=== PATIENT | male | born 1960 ===

== ENCOUNTER 2025-05-03 13:27 | Outpatient (AMB) | payer MEDICARE, MEDICAID, SELFPAY ==
--- NOTE | 2025-05-03 13:35 | A.PHYSOV_ITS ---
Vital Signs 05/03/25 13:36 Height 5 ft 7 in Weight 139 lb BMI 21.8 Intake Visit Reasons: NPV NAIN REF RT LUMBAR RADICULOPATHY Intake Note: Patient is a 64 year old male in office today as new patient for low back pain. Technical Specialist Cytology Required: Yes Technical Specialist Cytology Services: Technical Specialist Cytology Present Technical Specialist Cytology Name: [id number] klever Information Interpreted: clinical only Allergies No Known Allergies Allergy (Verified 05/03/25 13:43) HPI Comments Details: History of Present Illness (patient support representative [id number]) The patient is a 64-year-old male presenting with back pain radiating to the leg. The pain is described as intermittent and varies in intensity, with a current pain level of 6 out of 10. The patient reports that the pain is exacerbated by physical activities related to his work, which involves heavy lifting and pushing. The patient has been managing the pain with oknc-ita-slejshx medications such as Motrin, Advil, ibuprofen, and Tylenol, as well as prednisone 10 mg, which provides some relief. He has also undergone chiropractic treatment and physical therapy, which have been part of his pain management strategy. The patient has pain with specific movements such as bending forward and leaning back increase the pain, with radiation into the leg. The pain is suspected to be due to a pinched nerve in the back, as suggested by the clinician. Patient has CT scan of the lumbar spine reported below. I reviewed the referring provider's no prior consultation Pain Description - Onset and Timing: Pain is intermittent and varies in intensity - Quality and Character: Pain level is currently 6 out of 10 - Primary Location: Pain is located in the back with radiation to the leg - Exacerbating Factors: Physical activities related to work, such as heavy lift ing and pushing - Relieving Factors: [id number]-tbe-mttrbae medications and prednisone provide some relief PFSH Surgical History History of eye surgery (Unknown) Social History Alcohol intake: current Alcohol intake frequency: does not drink Patient Tobacco Use Status: Former Tobacco user Use of substances other than those prescribed or required for medical reasons: No Review of Systems Narrative Review of Systems - Musculoskeletal: Reports pain in the back with radiation to the leg - Neurological: Denies pain upon touch in the back Physical Exam Exam Exam: Physical Exam Lumbar Spine: He is tender to his lower lumbar facets on the right. He is otherwise nontender. Full range of motion is lumbar spine. FACET LOADING. Special Tests: Lhermittes sign was negative Heel Toe walk is normal Left straight leg raise: Negative Right straight leg raise: POSITIVE RIGHT Special tests Teddy test is negative Ganslen's test is negative SI Joint compression test negative Gerald test negative Piriformis stretch is negative Lower Extremities: Full range of motion bilateral lower extremities. No calf pain or edema. Neuro: Sensation: Intact to lower extremities bilaterally Strength L2 (Psoas): 5/5 on the left and 5/5 on the right. L3 (Quads): 5/5 on the left and 5/5 on the right. L4 (Ant tibialis): 5/5 on the left and 5/5 on the right. L5 (EHL) 5/5 on the left and 5/5 on the right. S1 (Gastroc): 5/5 on the left and 5/5 on the right. DTR L4: (Patellar) Left 1 Right 1 S1: (Achilles) Left 0 Right 0 Babinski Downgoing No pathologic clonus. No involuntary movement. Vital Signs: BMI result Body Mass Index 21.8 Assessment & Plan Assessment & Plan (1) Lumbar radiculopathy: Code(s): M54.16 - Radiculopathy, lumbar region Category: Medical (2) Lumbar spondylosis: Code(s): M47.816 - Spondylosis without myelopathy or radiculopathy, lumbar region Category: Medical Plan Pain Management - Affect: Pain impacts daily activities due to work-related physical demands - Analgesia: Current pain level is 6 out of 10; medications include Motrin, Advil, ibuprofen, Tylenol, and prednisone - Activities of Daily Living: Pain affects ability to perform work-related tasks Plan Patient was informed and verbally consented to the use of an ambient scribe for clinic note documentation during this visit. 1. Lumbar radiculopathy The patient is suspected to have a pinched nerve in the back, causing pain radiating to the leg. Conservative treatment options discussed include therapy, pet care attendant, and medications which he has failed. An epidural injection was recommended to potentially reduce pain by 50% for 3 to 6 months, though it is not a cure. The risks of the injection, including infection and nerve damage, were explained, and the procedure will be performed under x-ray guidance. I recommend right L4 TFESI is eager to proceed. The patient will have a follow-up appointment three weeks after the injection. We discussed the benefits of proper nutrition and exercise to maintain a healthy body weight to improve longevity and function. We also discussed the benefits of proper lifting techni ques, core strengthening and proper posture. Thank you for allowing me to participate in the care of your patient. Coding Level of Care Code Tele New Pt Level 4 (25760) Diagnoses Lumbar radiculopathy M54.16 Lumbar spondylosis M47.816
[2025-05-03 13:36] VITALS: BMI 21.8
--- OUTSIDE RECORDS SUMMARY | 2025-05-04 06:26 | XMS_ITS | Clinical Summary ---
Author Organization [facility] Address [address] [place] [address] Phone Care Team Providers Care Rehabilitation Program Coordinator Name Role Phone Eufemia Resendez MD Primary Care Provider [phone] Allergies No known active allergies Medications cetirizine (ZyrTEC) 10 mg tabletIndication s:Allergic rhinitis, unspecified Take 1 tablet (10 mg total) by mouth 1 (one) time each day. 90 tablet 1 5 Active methocarbamoL (ROBAXIN) 500 mg tablet Take 1 tablet (500 mg total) by mouth 2 (two) times a day for 10 days. 20 tablet 5 Active naproxen (NAPROSYN) 500 mg tabletIndication s:Unspecified osteoarthritis, unspecified site Take 1 tablet (500 mg total) by mouth 2 (two) times a day with meals. 60 tablet 11 5 Active fluticasone propionate (FLONASE) 50 mcg/actuation nasal spray ROCIAR 2 VECES IN CADA NARES A DIARIO 16 mL 5 5 Active cyclobenzaprine (FLEXERIL) 10 mg tablet Take 1 tablet (10 mg total) by mouth 3 (three) times a day if needed for muscle spasms for up to 10 days. 15 tablet 5 Active gabapentin (NEURONTIN) 300 mg capsule Take 1 capsule (300 mg total) by mouth 3 (three) times a day. Start with 1 tablet once a day x 3 days, then increase to 1 tablet twice a day x 3 days then increase to 1 tablet 3 times a day 90 capsule 1 5 Active predniSONE (DELTASONE) 10 mg tablet Take 1 tablet (10 mg total) by mouth 1 (one) time each day. Take 4 tablets once a day x 3 days then 3 tablets once a day x 3 days then 2 tablets once a day x 3 days then 1 tablet once a day x 3 days then 1/2 a tablet once day x 3 days then discontinue. 32 tablet 5 Active ganciclovir (ZIRGAN) 0.15 % ophthalmic gel solution Apply 1 drop to right eye 5 (five) times a day. 5 g 5 Active prednisoLONE acetate (PRED FORTE) 1 % ophthalmic suspension PONGA MIRA GOTA EN SHAD DERECHO CUATRO VECES AL D A 5 Active acetaminophen (Tylenol Extra Strength) 500 mg tablet Take 2 tablets (1,000 mg total) by mouth every 6 (six) hours if needed for mild pain. 90 tablet 1 5 Active acyclovir (ZOVIRAX) 400 mg tablet Take 1 tablet (400 mg total) by mouth 4 (four) times a day for 10 days. 50 tablet 5 04/19/20 25 HYDROcodone-acet aminophen (NORCO) 5-325 mg per tablet Take 1 tablet by mouth every 6 (six) hours if needed for severe pain for up to 3 days. Max Daily Amount: 4 tablets 12 tablet 5 04/14/20 25 Active Problems Problem Noted Date Diagnosed Date Bipolar affective disorder, remission status unspecified ([facility] V24, [facility] V28) 03/09/2025 Encounters Date Type Department Care Team Description 04/18/2025 10:30 AM EST Office Visit Internal Medicine - [place] [address] [facility] [address] [place] [id number] Ariel Aceves MD Eye infection, unspecified laterality (Primary Dx) 04/11/2025 5:58 PM EDT - 04/11/2025 6:51 PM EDT Emergency [facility] Emergency [address] [place] [phone] Mark Adorno MD Herpes zoster with complication (Primary Dx) Discharge Disposition: Home or Self Care 04/09/2025 3:16 PM EDT - 04/09/2025 5:26 PM EDT Emergency [facility] Emergency [address] [place] [address] Mark Adorno MD Herpes zoster with ophthalmic complication, unspecified herpes zoster eye disease (Primary Dx) Discharge Disposition: Home or Self Care 03/22/2025 8:00 AM EDT Consult Orthopedic Surgery [facility] [address] [facility] [address] [place] [address] Esther Bustillo MD Lumbar radiculopathy, right (Primary Dx) 03/17/2025 Results Follow-Up Internal Medicine [facility] 175 [facility] [address] [place] [address] Eufemia Resendez MD 03/16/2025 Telephone Internal Medicine - [place] 175 [facility] [address] [place] [address] Nat Coombs MA 03/09/2025 11:15 AM EDT Office Visit Internal Medicine [facility] [address] [facility] [address] [place] [address] Eufemia Resendez MD Adult general medical examination (Primary Dx); Bipolar affective disorder, remission status unspecified (CMS/HCC V24, CMS/HCC V28); Vitamin D deficiency; Other fatigue; Dyslipidemia; Hyperglycemia; Polyarthralgia; Pain of right hip; Pain of right lower extremity; Screening for malignant neoplasm of prostate 03/07/2025 8:33 PM EDT - 03/07/2025 8:47 PM EDT Emergency [facility] Emergency [address] [place] [address] Iliotibial band syndrome, right (Primary Dx); Greater trochanteric bursitis, right Discharge Disposition: Home or Self Care from Last 3 Months Surgical History Surgery Date Site/Laterality Comments COLONOSCOPY 10/15/2010 PROCEDURE: HISTORICAL COLONOSCOPY; COMMENT: normal; repeat in ten years ESOPHAGOGASTRODUODENOSCOPY 10/15/2010 PROCEDURE: [place] ESOPHAGOGASTRODUODENOSCOPY TRANSORAL DIAGNOSTIC; COMMENT: mild gastritis and small, shallow gastric ulcer EYE SURGERY Right PROCEDURE: HISTORICAL EYE SURGERY; COMMENT: -2001 Medical History Medical History Date Comments Asthma DX:Asthma Allergic rhinitis DX:Allergic rh initis GERD (gastroesophageal reflux disease) DX:GERD (gastroesophageal reflux disease) Family History Medical History Relation Name Comments Cancer of Small Bowel Brother Cancer of Small Bowel Father Relation Name Status Comments Brother Father Mother Alive Social History Tobacco Use Types Packs/Day Years Used Date Smoking Tobacco: Former Cigarettes 0 Q uit: 05/30/2010 Smokeless Tobacco: Never Tobacco Cessation:Counseling Given: Not Answered Alcohol Use Standard Drinks/Week Comments Not Currently 0 (1 standard drink = 0.6 oz pur e alcohol) Sex and Gender Information Value Date Recorded Sex Assigned at Male 07/28/2024 10:33 PM EST Legal Sex Male 6:15 PM EST Gender Identity Male 07/28/2024 10:33 PM EST Sexual Orientation Straight 07/28/2024 10 :33 PM EST Obstetrics History Last Filed Vital Signs Vital Sign Reading Time Taken Comments Blood Pressure 132/88 04/18/2025 10:23 AM EST Pulse 77 04/18/2025 10:23 AM EST Temperature 36.3 C (97.3 F) 04/18/2025 10:23 AM EST Respiratory Rate 14 04/11/2025 6:50 PM EDT Oxygen Saturation 97% 04/18/2025 10:23 AM EST Inhaled Oxygen Concentration - - Weight 63 kg (139 lb) 04/18/2025 10:23 AM EST Height 167.6 cm (5' 6 ) 04/18/2025 10:23 AM EST Body Mass Index 22.44 04/18/2025 10:23 AM EST Plan of Treatment Health Maintenance Due Date Last Done Comments Colorectal Cancer Screening: Colonoscopy 1960 RSV Immunization Adult Patients (1 - Risk 50-74 years 1-dose series) 2010 Zoster Vaccines (1 of 2) 2010 HIV Screening 07/15/2023 Hepatitis C Screening 07/15/2023 Medicare Annual Wellness Visit 07/15/2023 Social Influencers of Health Screening 07/15/2023 Depression Screening 06/16/2024 COVID-19 Vaccine (3 - 2024-2 6 season) 2025 10/31/2020, 10/10/2020 Influenza Vaccine (#1) 2025 9, 03/11/2018, 03/23/2017 Cholesterol Screening (Lipid Panel) 03/16/2030 03/16/2025, 02/06/2024 DTaP,Tdap,and Td Vaccines (3 - Td or Tdap) 02/05/2034 02/06/2024, 02/23/2016 Pneumococcal Vaccine: 50+ Years Completed 02/06/2024 HIB Vaccines Aged Out No longer eligi ble based on patient's age to complete this topic HPV Vaccines Aged Out No longer eligi ble based on patient's age to complete this topic Hepatitis A Vaccines Aged Out No long er eligible based on patient's age to complete this topic Hepatitis B Vaccines Aged Out No long er eligible based on patient's age to complete this topic IPV Vaccines Aged Out No longer eligi ble based on patient's age to complete this topic MMR Vaccines Aged Out No longer eligi ble based on patient's age to complete this topic Meningococcal ACWY Vaccine Aged Out N o longer eligible based on patient's age to complete this topic Meningococcal B Vaccine Aged Out No l onger eligible based on patient's age to complete this topic RSV Immunization Patients Under 20 months Aged Out No longer eligible b ased on patient's age to complete this topic Varicella Vaccines Aged Out No longer eligible based on patient's age to complete this topic Procedures Procedure Name Priority Date/Time Associated Diagnosis Comments HEMOGLOBIN A1C Routine 03/16/2025 9:32 AM EDT Bipolar affective disorder, remission status unspecified (CMS/HCC V24, CMS/HCC V28) Vitamin D deficiency Adult general medical examination Other fatigue Dyslipidemia Hyperglycemia COMPREHENSIVE METABOLIC PANEL Routine 03/16/2025 9:32 AM EDT Bipolar affective disorder, remission status unspecified (CMS/HCC V24, CMS/HCC V28) Vitamin D deficiency Adult general medical examination Other fatigue Dyslipidemia Hyperglycemia LIPID PANEL WITH REFLEX TO DIRECT LDL Routine 03/16/2025 9:32 AM EDT Bipolar affective disorder, remission status unspecified (CMS/HCC V24, CMS/HCC V28) Vitamin D deficiency Adult general medical examination Other fatigue Dyslipidemia Hyperglycemia COMPLETE BLOOD COUNT Routine 03/16/2025 9:32 AM EDT Bipolar affective disorder, remission status unspecified (CMS/HCC V24, CMS/HCC V28) Vitamin D deficiency Adult general medical examination Other fatigue Dyslipidemia Hyperglycemia THYROID STIMULATING HORMONE Routine 03/16/2025 9:32 AM EDT Bipolar affective disorder, remission status unspecified ([facility] V24, [facility] V28) Vitamin D deficiency Adult general medical examination Other fatigue Dyslipidemia Hyperglycemia VITAMIN B12 Routine 03/16/2025 9:32 AM EDT Bipolar affective disorder, remission status unspecified ([facility] V24, [facility] V28) Vitamin D deficiency Adult general medical examination Other fatigue Dyslipidemia Hyperglycemia VITAMIN D 25 HYDROXY Routine 03/16/2025 9:32 AM EDT Bipolar affective disorder, remission status unspecified ([facility] V24, [facility] V28) Vitamin D deficiency Adult general medical examination Other fatigue Dyslipidemia Hyperglycemia SEDIMENTATION RATE Routine 03/16/2025 9: 32 AM EDT Polyarthralgia NIKKI IFA WITH TITER AND PATTERN Routine 03/16/2025 9:32 AM EDT Polyarthralgia PROSTATE SPECIFIC ANTIGEN SCREEN Routine 03/16/2025 9:32 AM EDT Screening for malignant neoplasm of prostate XR HIP 2-3 VIEWS RIGHT STAT 5 5:58 PM EDT from Last 3 Months Results * Prostate specific antigen screen (03/16/2025 9:32 AM EDT) PSA 0.80 0.00 - 4.00 ng/mL LAB CHEMISTRY METHOD 03/16/2025 4:19 PM EDT [facility] Blood Venous blood specimen / Unknown Venipuncture / Unknown 03/16/2025 9:32 AM EDT 03/16/2025 9:32 AM EDT Narrative [facility] - 03/16/2025 4:19 PM EDT The Siemens Advia PowerReviewsaur Chemiluminescent Immunoassay is used. Results obtained with different assay methods or kits cannot be used interchangeably. Results cannot be interpreted as absolute evidence of the presence or absence of malignant disease. us Eufemia Resendez MD LAB BLOOD ORDERABLES Final Res ult Performing Organization Address City/[facility]/ZIP Co de Phone Number [facility] [address] [place] [address], [place] [phone] * Lipid panel with reflex to direct LDL (03/16/2025 9:32 AM EDT) Cholesterol 146 0 - 200 mg/dL LAB CHEMISTRY METHOD 03/16/2025 4:29 PM EDT [facility] Triglycerides 46 0 - 150 mg/dL LAB CHEMISTRY METHOD 03/16/2025 4:29 PM EDT [facility] HDL 51 >=40 mg/dL LAB CHEMISTRY METHOD 03/16/2025 4:29 PM EDT [facility] LDL Calculated 86 0 - 100 mg/dL LAB CHEMISTRY METHOD 03/16/2025 4:29 PM EDT [facility] Comment:Estimated LDL Calcul ated using equation: Total cholesterol - HDL cholesterol - (Triglycerides/5) VLDL Cholesterol Donovan 9.2 mg/dL LAB CHEMISTRY METHOD 03/16/2025 4:29 PM EDT [facility] Non HDL Chol. (LDL+VLDL) 95 <145 mg/dL LAB CHEMISTRY METHOD 03/16/2025 4:29 PM EDT [facility] Chol/HDL Ratio 2.9 0.0 - 4.4 LAB CHEMISTRY METHOD 03/16/2025 4:29 PM EDT [facility] Blood Venous blood specimen / Unknown Venipuncture / Unknown 03/16/2025 9:32 AM EDT 03/16/2025 9:32 AM EDT Eufemia Resendez MD LAB BLOOD ORDERABLES Final Res ult Performing Organization Address City/[facility]/ZIP Co de Phone Number [facility] [address] [place] [address], [place] [phone] * NIKKI IFA with titer and pattern (03/16/2025 9:32 AM EDT) [facility] NIKKI Negative Negative 03/17/2025 10:20 AM EDT [facility] Comment:NIKKI performed by ind irect immunofluorescence (IFA) using HEp-2 substrate. Blood Venous blood specimen / Unknown Venipuncture / Unknown 03/16/2025 9:32 AM EDT 03/16/2025 9:32 AM EDT Eufemia Resendez MD LAB BLOOD ORDERABLES Final Res ult Performing Organization Address City/[facility]/ZIP Co de Phone Number [facility] [address] [place] [address], [place] [phone] * Vitamin D 25 hydroxy (03/16/2025 9:32 AM EDT) [facility] Vit D, 25-Hydroxy 35.8 30.0 - 80.0 ng/mL LAB CHEMISTRY METHOD 03/16/2025 4:19 PM EDT [facility] Blood Venous blood specimen / Unknown Venipuncture / Unknown 03/16/2025 9:32 AM EDT 03/16/2025 9:32 AM EDT Eufemia Resendez MD LAB BLOOD ORDERABLES Final Res ult [facility] [address] [place] [address], [place] [phone] * Sedimentation rate (03/16/2025 9:32 AM EDT) [facility] Sed Rate 8 0 - 20 mm/hr LAB HEMETOLOGY METHOD 03/16/2025 10:12 AM EDT [facility] Blood Venous blood specimen / Unknown Venipuncture / Unknown 03/16/2025 9:32 AM EDT 03/16/2025 9:32 AM EDT us Eufemia Resendez MD LAB BLOOD ORDERABLES Final Res ult [facility] [address] [place] [address], [place] [phone] * Complete blood count (03/16/2025 9:32 AM EDT) WBC 7.6 4.8 - 10.8 K/mcL LAB HEMETOLOGY METHOD 03/16/2025 10:06 AM EDT [facility] RBC 4.60 4.50 - 5.50 M/mcL LAB HEMETOLOGY METHOD 03/16/2025 10:06 AM [facility] Hemoglobin 14.5 13.5 - 17.5 g/dL LAB HEMETOLOGY METHOD 03/16/2025 10:06 AM [facility] Hematocrit 44.6 42.0 - 54.0 % LAB HEMETOLOGY METHOD 03/16/2025 10:06 AM [facility] MCV 96.5 79.0 - 98.0 FL LAB HEMETOLOGY METHOD 03/16/2025 10:06 AM [facility] MCH 31.4 27.0 - 32.0 pcg LAB HEMETOLOGY METHOD 03/16/2025 10:06 AM [facility] MCHC 32.5 32.0 - 37.0 g/dL LAB HEMETOLOGY METHOD 03/16/2025 10:06 AM [facility] RDW 12.7 11.0 - 15.0 % LAB HEMETOLOGY METHOD 03/16/2025 10:06 AM [facility] Platelets 269 130 - 400 K/mcL LAB HEMETOLOGY METHOD 03/16/2025 10:06 AM EDT [facility] MPV 10.2 7.0 - 11.0 FL LAB HEMETOLOGY METHOD 03/16/2025 10:06 AM EDT [facility] NRBC 0.0 <1.0 % LAB HEMETOLOGY METHOD 03/16/2025 10:06 AM EDT [facility] NRBC Absolute 0.00 <0.10 K/mcL LAB HEMETOLOGY METHOD 03/16/2025 10:06 AM EDT [facility] Blood Venous blood specimen / Unknown Venipuncture / Unknown 03/16/2025 9:32 AM EDT 03/16/2025 9:32 AM EDT Eufemia Resendez MD LAB BLOOD ORDERABLES Final Res ult Performing Organization Address [facility]/ZIP Co de Phone Number [facility] [address] [place] [address], * Thyroid stimulating hormone (03/16/2025 9:32 AM EDT) TSH 0.78 0.40 - 4.00 mcIU/mL LAB CHEMISTRY METHOD 03/16/2025 4:26 PM EDT [facility] Blood Venous blood specimen / Unknown Venipuncture / Unknown 03/16/2025 9:32 AM EDT 03/16/2025 9:32 AM EDT Eufemia Resendez MD LAB BLOOD ORDERABLES Final Res ult Performing Organization Address City/[facility]/ZIP Co de Phone Number [facility] [address] [place] [address], [place] [phone] * Hemoglobin A1c (03/16/2025 9:32 AM EDT) Hemoglobin A1C 5.7 <6.5 % LAB CHEMISTRY METHOD 03/16/2025 1:37 PM EDT [facility] Mean Bld Glu Estim. 117 mg/dL LAB CHEMISTRY METHOD 03/16/2025 1:37 PM EDT [facility] Blood Venous blood specimen / Unknown Venipuncture / Unknown 03/16/2025 9:32 AM EDT 03/16/2025 9:32 AM EDT Eufemia Resendez MD LAB BLOOD ORDERABLES Final Res ult [facility] [address] [place] [address], [place] [phone] * Vitamin B12 (03/16/2025 9:32 AM EDT) [facility] Vitamin B-12 779 250 - 900 pcg/mL LAB CHEMISTRY METHOD 03/16/2025 4:29 PM EDT [facility] Blood Venous blood specimen / Unknown Venipuncture / Unknown 03/16/2025 9:32 AM EDT 03/16/2025 9:32 AM EDT us Eufemia Resendez MD LAB BLOOD ORDERABLES Final Res ult Performing Organization Address City/[facility]/ZIP Co de Phone Number [facility] [address] [place] [address], [place] [phone] * (ABNORMAL) Comprehensive metabolic panel (03/16/2025 9:32 AM EDT) [facility] Sodium 136 133 - 145 mmol/L LAB CHEMISTRY METHOD 03/16/2025 4:29 PM EDT [facility] Potassium 4.5 3.5 - 5.5 mmol/L LAB CHEMISTRY METHOD 03/16/2025 4:29 PM EDT [facility] Chloride 102 96 - 110 mmol/L LAB CHEMISTRY METHOD 03/16/2025 4:29 PM EDT [facility] CO2 27 21 - 32 mmol/L LAB CHEMISTRY METHOD 03/16/2025 4:29 PM EDT [facility] Anion Gap 7 3 - 11 LAB CHEMISTRY METHOD 03/16/2025 4:29 PM [facility] Glucose 101(H) 70 - 100 mg/dL LAB CHEMISTRY METHOD 03/16/2025 4:29 PM [facility] BUN 21 5 - 25 mg/dL LAB CHEMISTRY METHOD 03/16/2025 4:29 PM [facility] Creatinine 0.73 0.70 - 1.30 mg/dL LAB CHEMISTRY METHOD 03/16/2025 4:29 PM [facility] eGFR 102 >=60 mL/min/1. 73m2 LAB CHEMISTRY METHOD 03/16/2025 4:29 PM [facility] Comment:Calculation based on the Chronic Kidney Disease Epidemiology Collaboration (CKD-EPI) equation refit without adjustment for race. BUN/Creatinine Ratio 28.8 LAB CHEMISTRY METHOD 03/16/2025 4:29 PM [facility] Calcium 9.5 8.5 - 10.5 mg/dL LAB CHEMISTRY METHOD 03/16/2025 4:29 PM [facility] AST (SGOT) 19 10 - 42 unit/L LAB CHEMISTRY METHOD 03/16/2025 4:29 PM [facility] ALT (SGPT) 31 10 - 60 unit/L LAB CHEMISTRY METHOD 03/16/2025 4:29 PM [facility] Alkaline Phosphatase 95 42 - 121 unit/L LAB CHEMISTRY METHOD 03/16/2025 4:29 PM [facility] Total Protein 6.7 6.0 - 8.0 g/dL LAB CHEMISTRY METHOD 03/16/2025 4:29 PM [facility] Albumin 3.8 3.2 - 5.0 g/dL LAB CHEMISTRY METHOD 03/16/2025 4:29 PM [facility] Total Bilirubin 0.5 0.0 - 1.4 mg/dL LAB CHEMISTRY METHOD 03/16/2025 4:29 PM EDT [facility] Blood Venous blood specimen / Unknown Venipuncture / Unknown 03/16/2025 9:32 AM EDT 03/16/2025 9:32 AM EDT us Eufemia Resendez MD LAB BLOOD ORDERABLES Final Res ult [facility] [address] [place] [address], * XR Hip 2-3 Views Right (03/07/2025 5:58 PM EDT) Anatomical Region Laterality Modality Lower Extremities, Hip Right Radiograp hic Imaging 03/08/2025 8:56 AM EDT Impressions 03/08/2025 8:58 AM EDT Impression: No significant abnormality identified in the right hip. No significant change. Telerad FREDRICK ([id number]) -------- FINAL REPORT -------- Dictated By: Mariel Tapia Dictated Date: 03/08/2025 08:56 ET Assigned Physician: Mariel Tapia Reviewed and Electronically Signed By: Mariel Tapia Signed Date: 03/08/2025 08:58 ET Workstation ID: [id number] Transcribed By: Self Edit Transcribed Date: 03/08/2025 08:56 ET Narrative 03/08/2025 8:58 AM EDT History: Right hip pain. No trauma. Comparison: 02/03/23 Findings: An AP view of the pelvis to include both hips and AP and frog-leg lateral views of the right hip are submitted. The hip joints are well-maintained bilaterally. Femoral head contours are smooth. There is no significant arthritic change. A 12 mm circumscribed round radiolucent lesion with a thin sclerotic margin is again seen within the lateral aspect of the left femoral neck, compatible with a synovial herniation pit. No acute fracture or dislocation is seen. The pelvic bones are intact. The sacroiliac joints are well-maintained. Procedure Note Mariel Tapia MD - 03/08/2025 History: Right hip pain. No trauma. Comparison: 02/03/23 Findings: An AP view of the pelvis to include both hips and AP and frog-leg lateralviews of the right hip are submitted. The hip joints are well-maintained bilaterally. Femoral head contours aresmooth. There is no significant arthritic change. A 12 mm circumscribed round radiolucent lesion with a thin scleroticmargin is again seen within the lateral aspect of the left femoral neck,compatible with a synovial herniation pit. No acute fracture or dislocation is seen. The pelvic bones are intact. Thesacroiliac joints are well-maintained. IMPRESSION: Impression: No significant abnormality identified in the right hip. No significantchange. Telerad FREDRICK ([id number]) -------- FINAL REPORT -------- Dictated By: Mariel Tapia Dictated Date: 03/08/2025 08:56 ET Assigned Physician: Mariel Tapia Reviewed and Electronically Signed By: Mariel Tapia Signed Date: 03/08/2025 08:58 ET Workstation ID: [id number] Transcribed By: Self Edit Transcribed Date: 03/08/2025 08:56 ET Jet Schmid MD IMG XR PROCEDURES Final Re sult from Last 3 Months Insurance [facility] MEDICARE ADVANTAGE on file MEDICA[place] - [place] GENERIC WC GENERIC HUMAN MEDICARE ADVANTAGE on file MEDICAID - [place] Care Teams Rehabilitation Program Coordinator Relationship Specialty Start Date End Date Eufemia Resendez MD [address] [address] PCP - General Internal Medicine 07/28/24
--- OUTSIDE RECORDS SUMMARY | 2025-05-04 06:26 | XMS_ITS | Encounter Summary ---
Author Organization [facility] Address [address] [place] [address] Care Team Providers Care [place] Name Role Phone Eufemia Resendez MD Primary Care Provider [phone] Encounter Details Date Type Department Care Team ([facility] st Contact Info) Description 03/17/2025 Results Follow-Up Internal Medicine - [facility] [address] [facility] [address] [place] [address] Eufemia Resendez MD [address] [place] [id number] Social History Tobacco Use Types Packs/Day Years Used Date Smoking Tobacco: Former Cigarettes 0 Q uit: 05/30/2010 Smokeless Tobacco: Never Alcohol Use Standard Drinks/Week Comments Not Currently 0 (1 standard drink = 0.6 oz pur e alcohol) Sex and Gender Information Value Date Recorded Sex Assigned at Male 07/28/2024 10:33 PM EST Legal Sex Male 6:15 PM EST Gender Identity Male 07/28/2024 10:33 PM EST Sexual Orientation Straight 07/28/2024 10 :33 PM EST documented as of this encounter Functional Status * Are you deaf or do you have serious difficulty hearing? Answer Date of Assessment Author No 12/30/2024 7:27 PM Luis Horvath RN * Are you blind or do you have serious difficulty seeing, even when wearing glasses? Answer Date of Assessment Author No 12/30/2024 7:27 PM EDT Luis Loredo RN * Do you have serious difficulty walking or climbing stairs? Answer Date of Assessment Author No 12/30/2024 7:27 PM EDT Luis Loredo RN * Do you have serious difficulty dressing or bathing? Answer Date of Assessment Author No 12/30/2024 7:27 PM EDT Luis Loredo RN * Because of a physical, mental, or emotional condition, do you have serious difficulty doing errandsalone such as visiting the doctor? Answer Date of Assessment Author No 12/30/2024 7:27 PM EDT Luis Loredo RN documented as of this encounter Mental Status * Because of a physical, mental, or emotional condition, do you have serious difficulty concentrating, remembering, or making decisions? (5 years old or older) Answer Entry Date Author No 12/30/2024 7:27 PM EDT Luis Loredo RN documented in this encounter Progress Notes * Colleen Alicia - 04/15/2025 2:26 PM EDT Patient called aware of lab results documented in this encounter Plan of Treatment Not on file documented as of this encounter Visit Diagnoses Not on filedocumented in this encounter Care Teams [place] Relationship Specialty Start Date End Date Eufemia Resendez MD [address] [place] [phone] PCP - General Internal Medicine 07/28/24 documented as of this encounter
== END 2025-05-03 14:08 | disposition home or self-care (01) ==
LOC: HO.HPHYS 13:27
PROVIDERS: PCP Internal Medicine; Visit Provider Physician Assistant
DX: M54.16 Radiculopathy, lumbar region (principal); M47.816 Spondylosis without myelopathy or radiculopathy, lumbar region
CPT/HCPCS: 99204

== ENCOUNTER → 2025-05-03 13:27 | Outpatient (BNVA) | payer MEDICARE, MEDICAID, SELFPAY | PROVIDERS: PCP Internal Medicine; Visit Provider Physician Assistant | DX: M54.16 Radiculopathy, lumbar region (principal); M47.816 Spondylosis without myelopathy or radiculopathy, lumbar region | CPT/HCPCS: 99202 ==